=== PATIENT | male | born 1950 | race Caucasian/White ===

== ENCOUNTER → 2018-03-15 06:39 | Day surgery (SDC) | payer MEDICARE ==
--- NOTE | 2018-03-04 20:52 | HP ---
PREOPERATIVE HISTORY AND PHYSICAL: DATE OF SURGERY/ADMISSION: 03/15/18 [facility] DATE OF OFFICE VISIT/ENCOUNTER: 02/27/18 JOINTER MACHINE: Dr. Mejia. ATTENDING SURGEON: Deb Reyes MD.* (DICTATED BY RAHEL ALFREDO) PROCEDURE: Right wrist carpal tunnel release. CHIEF COMPLAINT: Numbness and tingling, right hand. HISTORY OF PRESENT ILLNESS: This is a 67-year-old male who complains of numbness and tingling in his right hand that has been ongoing for several years. It has recently gotten quite a bit worse. 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 He currently feels a lot of pain in the median nerve distribution, sometimes the pain can get up to a 9/10. He has been wearing a brace recently that helps somewhat. He had a nerve conduction study, which showed severe carpal tunnel syndrome on the right. He does have diabetes, but no known neuropathy. He also has a significant cardiac history including coronary artery disease, chronic ischemic heart disease, history of an MS in 1989, and he had a balloon angioplasty as well as cardiac catheterization in the past. He recently saw his spinning machine operator, Dr. Mejia. That was at the end of January 2018. There had been no changes. No changes in medications and no further cardiac testing was recommended. PAST MEDICAL HISTORY: 1. Coronary artery disease. 2. Sleep apnea with CPAP. 3. Hyperlipidemia. 4. Hypertension. 5. Chronic ischemic heart disease. 6. History of an MS in 1989. 7. Diabetes. 8. History of GERD. 9. Bladder cancer. PAST SURGICAL HISTORY: 1. Balloon angioplasty, this was performed in [place]. 2. Cardiac catheterization and stent x2 placement in 2014. 3. Bilateral total knee arthroplasties. 4. Radial styloidectomy. 5. Right shoulder surgery. 6. Plastic lens implants in eyes. CURRENT MEDICATIONS: 1. Tylenol With Codeine 1 to 2 tabs every 6 hours p.r.n. pain. 2. Aspirin 81 mg daily. 3. Diazepam 5 mg daily. 4. Famotidine 20 mg daily. 5. Humalog 100 units/mL sliding scale. 6. Irbesartan 150 mg daily. 7. Jardiance 25 mg daily. 8. Meclizine 12.5 mg 3 times a day. 9. Metformin HCL 1000 mg twice a day. 10. Metoprolol succinate 100 mg in the morning and half at night. 11. Omeprazole 20 mg daily. 12. Simvastatin 80 mg daily. 13. Toujeo SoloSTAR 300 units/mL 60 units twice daily. 14. Trulicity 0.75 mg 0.5 mL, inject once a week. 15. Tylenol PM 500 mg 2 q.h.s. 16. Vitamin B12 1000 mcg daily. ALLERGIES: No known drug allergies. FAMILY MEDICAL HISTORY: Noncontributory. SOCIAL HISTORY: The patient is retired. He is a former smoker, he quit in 1999 , prior to that he smoked a pack per day for 30 years. He does smoke marijuana on occasion and drinks alcohol on rare occasion. REVIEW OF SYSTEMS: Negative for general, cephalic, cardiovascular, respiratory , GI, , other musculoskeletal, integumentary, endocrine, neurologic, and hematologic symptoms. Infectious Disease is negative for MRSA, hepatitis C, HIV. PHYSICAL EXAMINATION GENERAL: Well-developed, well-nourished 67-year-old male, in no acute distress. VITAL SIGNS: Height 5 feet 6 inches, weight 310 pounds. Pulse rate 84, blood pressure 136/74. HEENT: Normocephalic, atraumatic. Pupils are equal, round, and reactive to light and accommodation. Extraocular movements are intact. Throat is clear. NECK: Supple. No palpable lymph nodes. PULMONARY: Lungs are clear to auscultation bilaterally. No wheezes, rales, or rhonchi. CARDIOVASCULAR: Regular rate and rhythm. S1, S2. No murmurs, rubs, or gallops. No edema. ABDOMEN: Positive bowel sounds. Soft, nontender. MUSCULOSKELETAL: On exam of his right hand, there is no thenar wasting. He has some weakness with thumb abduction. He can make a fist and extend his fingers, but he has some loss of hris developer strength. He has decreased sensation in his thumb, but normal sensation in the other fingers. Wrist motion is limited compared to the left wrist by about 50% in each direction. NEUROLOGICAL: Alert and oriented x3. Cranial nerves II through XII are intact. IMPRESSION: Right carpal tunnel syndrome. PLAN: The patient is scheduled to undergo a right wrist carpal tunnel release with Dr. Reyes on 03/15/18. He will return to the office 10 days postop for followup and suture removal. He will plan on using [id number] medications for postoperative pain management. He also has Tylenol With Codeine at home that he may use if pain is not managed by [id number] meds. RAHEL ALFREDO [id number]/CPS #: [id number]
[~2018-03-15 06:39] MED LIST: Acetaminophen TAB* 325 MG PO PRN; Buffered Lidocaine 0.9% SYRIN* 5 ML/SYR SYRINGE INTRADERM ONE; DiMENhydriNATE IV* 50 MG/ML VIAL IV PUSH PRN; Famotidine IV* 10 MG/ML 2 ML (20 mg) IV SLOW PU ONE; Naloxone* 0.4 MG/ML 1 ML VIAL IV PRN; Ondansetron INJ* 2 MG/ML VIAL IV PRN; fentaNYL* 50 MCG/ML 2 ML VIAL (100 MCG VIAL) IV PRN; oxyCODONE/Acetamin 5/325 MG* TAB PO PRN
== END | disposition home or self-care (01) ==
LOC: OR 06:39
PROVIDERS: ATTEND Orthopaedic Surgery
DX: G56.01 Carpal tunnel syndrome, right upper limb (principal); Z53.09 Procedure and treatment not carried out because of other contraindication

== ENCOUNTER 2018-03-26 06:16 | Day surgery (SDC) | payer MEDICARE ==
[~2018-03-26 06:16] MED LIST changes: -Acetaminophen TAB* 325 MG PO PRN; -DiMENhydriNATE IV* 50 MG/ML VIAL IV PUSH PRN; -Famotidine IV* 10 MG/ML 2 ML (20 mg) IV SLOW PU ONE; -Naloxone* 0.4 MG/ML 1 ML VIAL IV PRN; -Ondansetron INJ* 2 MG/ML VIAL IV PRN; -fentaNYL* 50 MCG/ML 2 ML VIAL (100 MCG VIAL) IV PRN; -oxyCODONE/Acetamin 5/325 MG* TAB PO PRN
[2018-03-26] MEDS ORDERED: Buffered Lidocaine 0.9% SYRIN* 5 ML/SYR SYRINGE ONE (06:35)
[2018-03-26] MEDS ORDERED: Lidocaine 1% INJ* 10 MG/ML 30 ML SDV ONE ×2 (07:23→07:31)
[2018-03-26] MEDS ORDERED: Midazolam* 1 MG/ML 5 ML VIAL (5 MG) ONE (07:31)
[2018-03-26] MEDS ORDERED: fentaNYL* 50 MCG/ML 2 ML VIAL (100 MCG VIAL) ONE (07:31)
[2018-03-26 08:37] VITALS: BP 121/78
--- NOTE | 2018-03-26 21:41 | OP ---
DATE OF OPERATION: 03/26/18 - [facility] DATE OF : 50 SURGEON: Deb Reyes MD BILLING SUPERVISOR: Nicolas. ANESTHESIA: Local MAC. PRE-OP DIAGNOSIS: Right carpal tunnel syndrome. POST-OP DIAGNOSIS: Right carpal tunnel syndrome. OPERATIVE PROCEDURE: Right carpal tunnel release. INDICATIONS: Jan is a 67-year-old male with numbness and tingling in the median nerve distribution of his right hand. He presents for right carpal tunnel release. ESTIMATED BLOOD LOSS: Zero. TOURNIQUET TIME: 7 minutes. DESCRIPTION OF PROCEDURE: The patient was brought to the operating room, was given a sedation anesthetic and a local infiltration of 10 cc of 1% plain lidocaine in the palm of his right hand. Skin of his right hand and forearm was prepped and draped in the usual sterile fashion. The hand and forearm were exsanguinated and the tourniquet elevated to 250 mmHg. A longitudinal incision was made in the palm in line with the ring finger. We dissected sharply through the subcutaneous tissue, down to the transverse carpal ligament. The ligament was divided sharply with the knife and then more proximally with the scissors. There was an area of significant compression along the entire length of the ligament. The wound was irrigated and the skin edges reapproximated with 4-0 nylon suture. The wound was dressed with Xeroform, 4x4, Webril, and an Amos wrap. The patient tolerated the procedure well and was brought to the recovery room in good condition. [id number]/CPS #: [id number]
== END 2018-03-26 08:39 | disposition home or self-care (01) ==
LOC: OR 06:16
PROVIDERS: ATTEND Orthopaedic Surgery
DX: G56.01 Carpal tunnel syndrome, right upper limb (principal); E11.9 Type 2 diabetes mellitus without complications; K21.9 Gastro-esophageal reflux disease without esophagitis; I10 Essential (primary) hypertension; I25.10 Atherosclerotic heart disease of native coronary artery without angina pectoris; Z87.891 Personal history of nicotine dependence; G47.33 Obstructive sleep apnea (adult) (pediatric); E66.01 Morbid (severe) obesity due to excess calories; Z68.43 Body mass index [BMI] 50.0-59.9, adult; F41.9 Anxiety disorder, unspecified
CPT/HCPCS: J2250; J3010

== ENCOUNTER 2023-10-01 05:35 | Observation (INO) ==
[~2023-10-01 05:35] MED LIST changes: -Buffered Lidocaine 0.9% SYRIN* 5 ML/SYR SYRINGE INTRADERM ONE; +Naloxone 0.4 mg VIAL 0.4 mg/ml 1 ml VIAL IV PRN; +Ondansetron 4 mg VIAL 2 MG/ML 2 ml VIAL IV PRN
[2023-10-01] MEDS ORDERED: ceFAZolin *3* GM in NS PREMIX 3 GM/100 ML BAG IV ONE (06:05)
[2023-10-01 06:14] LABS: Rapid COVID-19 Molecular Undetected (Undetected)
[2023-10-01] MEDS ORDERED: Dexmedetomidine 200 mcg/2 ml 2 ml VIAL (200 mcg) ONE (06:57)
[2023-10-01] MEDS ORDERED: Lidocaine 2% PF 5 ML VIAL ONE ×2 (06:57→10:18)
[2023-10-01] MEDS ORDERED: Glycopyrrolate IV 0.2 MG/ML 1 ML VIAL ONE (06:57)
[2023-10-01] MEDS ORDERED: fentaNYL 100 mcg/2 ml 50 MCG/ML VIAL ONE ×3 (06:57→11:51)
[2023-10-01] MEDS ORDERED: Rocuronium 50 mg VIAL 10 mg/ml 5 ml VIAL (50 mg) ONE (06:57)
[2023-10-01] MEDS ORDERED: Midazolam 2 mg/2 ml VIAL 1 mg/ml 2 ml VIAL (2 mg) ONE ×2 (06:57→07:48)
[2023-10-01] MEDS ORDERED: Propofol 10 MG/ML 20 ML BTL ONE (06:57)
[2023-10-01] MEDS ORDERED: Lidocaine 1% w EPI 1:100,000 MDV 20 ML VIAL ONE (06:58)
[2023-10-01] MEDS ORDERED: Gelfoam Sponge SIZE 100 SPONGE ONE (06:59)
[2023-10-01] MEDS ORDERED: Phenylephrine IV 10 MG/ML 1 ml VIAL ONE (06:59)
[2023-10-01] MEDS ORDERED: Thrombin 5,000 UNITS(BOVINE) for Ultrasound Guided Pseudoaneursym ONE ×2 (06:59→09:23)
[2023-10-01] MEDS ORDERED: ceFAZolin VIAL VIAL ONE (06:59)
[2023-10-01] MEDS ORDERED: Desflurane 240 ML INH ONE (07:15)
[2023-10-01] MEDS ORDERED: Sevoflurane BOTTLE ONE (07:15)
[2023-10-01] MEDS ORDERED: Succinylcholine 200 mg VIAL 20 mg/ml 10 ml VIAL (200 mg) ONE (07:19)
[2023-10-01] MEDS ORDERED: fentaNYL 250 mcg/5 ml 50 MCG/ML 5 ml VIAL (250 MCG) ONE (07:45)
[2023-10-01] MEDS ORDERED: Metoprolol Tartrate 5 mg VIAL 5 ml VIAL (1 mg/ml) ONE (07:47)
[2023-10-01] MEDS ORDERED: Ondansetron 4 mg VIAL 2 MG/ML 2 ml VIAL ONE (08:14)
[2023-10-01] MEDS ORDERED: Dexamethasone IV 4 MG/ML VIAL 1 ml VIAL ONE (08:14)
[2023-10-01] MEDS ORDERED: Ondansetron 4 mg VIAL 2 MG/ML 2 ml VIAL IV PRN (10:43)
[2023-10-01] MEDS ORDERED: Benzocaine/Menthol LOZ MT PRN (10:43)
[2023-10-01] MEDS ORDERED: Calcium Carb (TUMS) 500 mg CHEW TAB PO PRN (10:43)
[2023-10-01] MEDS ORDERED: Dextran 70/Hypromellose Tears Eye Drops 15 ml BTL (for Artificials Tears) BOTH EYES PRN (10:43)
[2023-10-01] MEDS ORDERED: Phenol 1.4% Throat Spray BTL MT PRN (10:43)
[2023-10-01] MEDS: fentaNYL 100 mcg/2 ml 50 MCG/ML VIAL IV PRN (11:20)
[2023-10-01] MEDS: HYDROcodone/ACETAMIN 5/325 mg TAB PO PRN ×2 (13:01→20:40)
[2023-10-01] MEDS: Buffered Lidocaine 1% SYRIN 1 ml INTRADERM ONE (13:20)
[2023-10-01] MEDS: Lactated Ringers 1000 ml BAG 1,000 ML IV SCH ×2 (13:20→13:39)
[2023-10-01] MEDS: Morphine 2 MG/ML SYRINGE IV PRN (16:50)
[2023-10-01] MEDS: Aspirin EC 81 mg TAB.EC (enteric coated) PO SCH (20:38)
[2023-10-01] MEDS: Insulin GLARGINE 100 un/ml 10 ml VIAL SUBCUT SCH (20:43)
[2023-10-02] MEDS: Senna TAB 8.6 mg TAB PO PRN (08:53)
[2023-10-03 06:13] VITALS: BP 123/58
== END 2023-10-03 10:20 | disposition home or self-care (01) ==
LOC: SSU 05:35 → OR 05:35
PROVIDERS: ADMIT Neurological Surgery; ATTEND Neurological Surgery